=== PATIENT | female | born 2000 | race Native Hawaiian/Other Pacific Islander ===

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

== ENCOUNTER 2020-01-19 14:19 | Emergency (ER) | payer OTHER ==
[~2020-01-19] VITALS: Ht 160 cm; Wt 66.2 kg
[2020-01-19 14:29] VITALS: TEMP 98.9
[2020-01-19 16:25] VITALS: BP 124/63
== END 2020-01-19 16:25 | disposition home or self-care (01) ==
LOC: ED 14:19
DX: N76.0 Acute vaginitis (principal); Z20.2 Contact with and (suspected) exposure to infections with a predominantly sexual mode of transmission
CPT/HCPCS: 81000; 81025; 96372; 99283; J0696

== ENCOUNTER 2020-08-08 17:14 | Emergency (ER) | payer OTHER ==
[~2020-08-08] VITALS: Ht 160 cm; Wt 59.0 kg
[2020-08-08 17:18] VITALS: BP 124/74; TEMP 98.7
[2020-08-08 18:29] LABS: PLATELET COUNT 166 K/uL (152-353)
[2020-08-08 18:36] LABS: POTASSIUM 3.2 mmol/L (3.6-5.2)
== END 2020-08-08 19:58 | disposition home or self-care (01) ==
LOC: ED 17:14
PROVIDERS: Family Medicine
DX: E87.6 Hypokalemia (principal); Z3A.01 Less than 8 weeks gestation of pregnancy
CPT/HCPCS: 36415; 80053; 80307; 81000; 84702; 85027; 87086; 87088; 99283

== ENCOUNTER 2020-08-16 19:54 | Emergency (ER) | payer OTHER ==
[~2020-08-16] VITALS: Ht 160 cm; Wt 57.6 kg
[2020-08-16 20:51] LABS: PLATELET COUNT 171 K/uL (152-353)
[2020-08-16 21:05] LABS: POTASSIUM 3.4 mmol/L (3.6-5.2)
[2020-08-16 22:43] VITALS: BP 103/64; TEMP 98.1
== END 2020-08-16 22:43 | disposition home or self-care (01) ==
LOC: ED 19:54
PROVIDERS: Emergency Medicine
DX: O23.32 Infections of other parts of urinary tract in pregnancy, second trimester (principal); E86.0 Dehydration; N89.8 Other specified noninflammatory disorders of vagina; O36.8120 Decreased fetal movements, second trimester, not applicable or unspecified
CPT/HCPCS: 80053; 81000; 82150; 83690; 85027; 87086; 87088; 87210; 96360; 96361; 96365; 99284; J0696

== ENCOUNTER 2020-08-28 22:05 | Emergency (ER) | payer OTHER ==
[~2020-08-28] VITALS: Ht 160 cm; Wt 57.6 kg
[2020-08-28 22:55] VITALS: BP 143/98; TEMP 98.2
== END 2020-08-28 22:55 | disposition short-term general hospital (02) ==
LOC: ED 22:11
DX: O60.03 Preterm labor without delivery, third trimester (principal); R10.84 Generalized abdominal pain; Z3A.31 31 weeks gestation of pregnancy
CPT/HCPCS: 99284

== ENCOUNTER 2020-09-27 19:04 | Emergency (ER) | payer OTHER ==
[~2020-09-27] VITALS: Ht 160 cm; Wt 57.6 kg
[2020-09-27 19:14] VITALS: BP 125/76; TEMP 98
== END 2020-09-27 20:12 | disposition home or self-care (01) ==
LOC: ED 19:04
DX: Z33.1 Pregnant state, incidental (principal); Z3A.37 37 weeks gestation of pregnancy
CPT/HCPCS: 99282; 99284

== ENCOUNTER 2020-09-28 14:37 | Emergency (ER) | payer OTHER ==
[~2020-09-28] VITALS: Ht 160 cm; Wt 58.1 kg
[2020-09-28 14:37] VITALS: TEMP 99
[2020-09-28 16:50] VITALS: BP 112/66
== END 2020-09-28 16:50 | disposition home or self-care (01) ==
LOC: ED 14:37
DX: Z33.1 Pregnant state, incidental (principal); Z3A.37 37 weeks gestation of pregnancy
CPT/HCPCS: 80307; 99284

== ENCOUNTER 2020-10-05 22:34 | Emergency (ER) | payer OTHER ==
[~2020-10-05] VITALS: Ht 160 cm; Wt 58.1 kg
[2020-10-06 01:51] LABS: PLATELET COUNT 155 K/uL (152-353)
[2020-10-06 02:00] LABS: POTASSIUM 4.1 mmol/L (3.6-5.2)
[2020-10-06 02:12] LABS: PARTIAL THROMBOPLASTIN TIME 25.2 SECONDS (24.5-33.6)
[2020-10-06 04:27] VITALS: BP 115/77; TEMP 98.4
== END 2020-10-06 04:27 | disposition short-term general hospital (02) ==
LOC: ED 22:34
PROVIDERS: Hospitalist
DX: Z3A.38 38 weeks gestation of pregnancy (principal)
CPT/HCPCS: 80053; 80307; 80320; 81000; 84702; 85027; 85610; 85730; 96360; 96365; 96375; 99284; J0696; J2405

== ENCOUNTER 2021-10-06 08:35 | Emergency (ER) | payer OTHER ==
[~2021-10-06] VITALS: Ht 160 cm; Wt 58.1 kg
[2021-10-06 08:47] VITALS: BP 127/88; TEMP 98
[2021-10-06 09:18] LABS: PLATELET COUNT 246 K/uL (152-353)
[2021-10-06 09:22] LABS: POTASSIUM 3.7 mmol/L (3.6-5.2)
[2021-10-06 09:34] LABS: PARTIAL THROMBOPLASTIN TIME 28.4 SECONDS (24.5-33.6)
== END 2021-10-06 09:41 | disposition home or self-care (01) ==
LOC: ED 08:35
PROVIDERS: Emergency Medicine
DX: R11.2 Nausea with vomiting, unspecified (principal); R06.02 Shortness of breath; F41.8 Other specified anxiety disorders
CPT/HCPCS: 36415; 80048; 80307; 81002; 81015; 81025; 85027; 85610; 85730; 99282

== ENCOUNTER 2021-10-07 01:43 | Emergency (ER) | payer OTHER ==
[~2021-10-07] VITALS: Ht 160 cm; Wt 58.1 kg
[2021-10-07 02:09] LABS: PLATELET COUNT 204 K/uL (152-353)
[2021-10-07 02:16] LABS: POTASSIUM 3.2 mmol/L (3.6-5.2)
[2021-10-08 03:31] LABS: PLATELET COUNT 181 K/uL (152-353)
[2021-10-09 08:43] VITALS: BP 111/72; TEMP 98
== END 2021-10-09 15:28 | disposition still patient (30) ==
LOC: ED 01:43
PROVIDERS: Emergency Medicine; Hospitalist
DX: R45.851 Suicidal ideations (principal); E87.6 Hypokalemia; T43.292A Poisoning by other antidepressants, intentional self-harm, initial encounter; T43.222A Poisoning by selective serotonin reuptake inhibitors, intentional self-harm, initial encounter; T43.4X2A Poisoning by butyrophenone and thiothixene neuroleptics, intentional self-harm, initial encounter; T42.6X2A Poisoning by other antiepileptic and sedative-hypnotic drugs, intentional self-harm, initial encounter; T44.7X2A Poisoning by beta-adrenoreceptor antagonists, intentional self-harm, initial encounter; T44.6X2A Poisoning by alpha-adrenoreceptor antagonists, intentional self-harm, initial encounter; T50.992A Poisoning by other drugs, medicaments and biological substances, intentional self-harm, initial encounter; Y92.89 Other specified places as the place of occurrence of the external cause; Z20.822 Contact with and (suspected) exposure to COVID-19
CPT/HCPCS: 36415; 80053; 80143; 80164; 80179; 80307; 80320; 81002; 81025; 85027; 87635; 93005; 96372; 99285; J0696; U0003

== ENCOUNTER 2021-12-26 13:05 | Emergency (ER) | payer OTHER ==
[~2021-12-26] VITALS: Ht 162.6 cm; Wt 74.8 kg
[2021-12-26 13:06] VITALS: TEMP 97.5
[2021-12-26 14:36] VITALS: BP 135/83
== END 2021-12-26 14:56 | disposition home or self-care (01) ==
LOC: ED 13:05
DX: R42 Dizziness and giddiness (principal); K29.60 Other gastritis without bleeding
CPT/HCPCS: 81002; 81025; 99283

== ENCOUNTER 2022-01-23 13:48 | Emergency (ER) | payer OTHER ==
[~2022-01-23] VITALS: Ht 162.6 cm; Wt 74.8 kg
[2022-01-23 14:00] VITALS: TEMP 98.6
[2022-01-23 15:10] VITALS: BP 132/78
== END 2022-01-23 15:13 | disposition home or self-care (01) ==
LOC: ED 13:48
DX: R11.2 Nausea with vomiting, unspecified (principal); Z32.02 Encounter for pregnancy test, result negative
CPT/HCPCS: 80307; 81002; 81025; 99282

== ENCOUNTER 2022-07-27 23:08 | Emergency (ER) | payer OTHER ==
[~2022-07-27] VITALS: Ht 162.6 cm; Wt 96.2 kg
[2022-07-27 23:50] LABS: PLATELET COUNT 241 K/uL (152-353)
[2022-07-28 00:02] LABS: POTASSIUM 3.5 mmol/L (3.6-5.2)
[2022-07-28 02:39] VITALS: BP 123/80; TEMP 98.5
== END 2022-07-28 02:39 | disposition still patient (30) ==
LOC: ED 23:08
PROVIDERS: Emergency Medicine
DX: F20.9 Schizophrenia, unspecified (principal); F31.9 Bipolar disorder, unspecified
CPT/HCPCS: 80053; 80143; 80179; 80307; 80320; 81002; 81025; 85027; 87635; 99282; U0003